=== PATIENT | male | born 1975 | race African-American/Black ===

== ENCOUNTER 2024-11-14 12:31 | Emergency (ER) | payer MEDICAID ==
[~2024-11-14] VITALS: Ht 193 cm; Wt 106.8 kg
[~2024-11-14 12:31] MED LIST: ASPI81TA52 PO; NO HOME MEDS; NOR5T PO
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
[2024-11-14 15:27] LABS: MEAN PLATELET VOLUME 6.6 FL (7.4-10.4); RED CELL DISTRIBUTION WIDTH 13.8 % (11.5-14.5)
[2024-11-14 15:38] LABS: CREATININE 0.99 MG/DL (0.60-1.10); TOTAL CARBON DIOXIDE 31.1 MMOL/L (24-32); eCRCL 108 ML/MIN; eGFR > 90 ML/MIN
[2024-11-14] MEDS ORDERED: iohexol 300mg/ml 100ml inj. ONE (16:16)
[2024-11-14 19:52] VITALS: BP 186/107; PULSE 77; RESP 15; TEMP 98.3; O2SAT 100
--- NOTE | 2024-11-16 08:13 | RADIOLOGY REPORT ---
EXAM: CT ABDOMEN HISTORY: Pain TECHNIQUE: Volumetric multidetector CT images of the abdomen and pelvis were obtained after the administration of intravenous contrast. All CT scans at this facility use dose modulation, iterative reconstruction, and/or weight based dosing when appropriate to reduce radiation dose to as low as reasonably achievable. COMPARISON: US ULTRASOUND OF ABDOMEN on DOS: 10/30/24 FINDINGS: [LOWER CHEST]: The partially visualized lung bases are clear without a pleural effusion. [LIVER]: Normal hepatic size without suspicious focal lesion. [GALLBLADDER AND BILIARY TREE]: No cholelithiasis. [SPLEEN]: Unremarkable. [PANCREAS]: Unremarkable. [ADRENAL GLANDS]: Unremarkable [KIDNEYS]: No hydronephrosis. No nephroureterolithiasis. No suspicious focal lesion. [BLADDER]: Unremarkable for the degree distention. [REPRODUCTIVE ORGANS]: Unremarkable. [BOWEL/MESENTERY]: Stomach is normal. [id number] stool burden. Normal appendix suspected [ASCITES]: Absent [LYMPHADENOPATHY]: No pathologically enlarged lymph nodes by CT size criteria [VASCULATURE]: No aneurysmal dilatation. [ABDOMINAL WALL]: Interval decreased caliber of the fluid-filled sac measuring 4.5 cm currently in the upper ventral abdomen, previously 8 cm. Superimposed infection not excluded given slight surrounding inflammatory stranding. No associated internal fat at this time. Hernia neck is not well identified on current examination and imaging finding may be related to recent surgical repair. [MUSCULOSKELETAL]: No acute fracture or aggressive focal osseous lesion. Multifocal degenerative change of the visualized spine. IMPRESSION: 1. Interval decreased caliber of the fluid-filled sac measuring 4.5 cm currently in the upper ventral abdomen, previously 8 cm. Superimposed infection not excluded given slight surrounding inflammatory stranding. No associated internal fat at this time. Hernia neck is not well identified on current examination and imaging finding may be related to recent surgical repair. 2. Correlate for superinfected postoperative seroma N SPLITTER ALFONSOD
== END 2024-11-14 21:20 | disposition home or self-care (01) ==
LOC: ER 12:32
DX: R10.32 Left lower quadrant pain (principal); Z88.0 Allergy status to penicillin
CPT/HCPCS: 36415; 74177; 80053; 85025; 99285; Q9967